=== PATIENT | male | born 1995 | race Caucasian/White ===

== ENCOUNTER 2018-05-09 22:02 | Emergency (ER) | payer SELFPAY ==
[~2018-05-09] VITALS: Ht 177.8 cm; Wt 82.3 kg
[~2018-05-09 22:02] MED LIST: AMOXICILLIN 50500 MG PO; CEPHALEXIN500 M1 PO; DOXYCYCLINE 10100 MG PO; NO HOME MEDICATIONS; NORCO 325 MG-51 TAB PO; ULTRAM 50MG TAB50 MG PO; VOLTAREN 75 DR75 MG PO; ZOVIRAX 200MG200 MG PO
[2018-05-09 22:05] VITALS: TEMP 99.6
[2018-05-09 23:01] LABS: COLLECTION METHOD CLEAN CATCH
[2018-05-09 23:04] LABS: BASO # 0.1 (0.0-0.2); BASO % 0.5 % (0.0-2.0); EOS # 0.1 (0.0-0.7); GRAN # 5.1 (1.4-6.5); GRAN % 54.2 % (42.2-75.2); HEMATOCRIT 44.4 % (42.0-52.0); HEMOGLOBIN 15.2 g/dl (13.5-18.0); LYMPH # 3.1 (1.2-3.4); LYMPH % 32.5 % (20.0-51.0); MEAN CELL VOLUME 85 fl (80.0-100.0); MEAN CORPUSCULAR HEMOGLOBIN 29 pg (27.0-31.0); MEAN CORPUSCULAR HGB CONC 34 g/dl (33.0-37.0); MONO # 1.1 (0.1-0.6); MONO % 11.5 % (1.7-9.3); PLATELET COUNT 316 K/mm3 (130-400); RED BLOOD COUNT 5.22 M/mm3 (4.20-5.60); REDCELL DISTRIBUTION WIDTH-CV 12.4 % (11.5-14.5)
[2018-05-09 23:09] LABS: PH 7 (5-8); SQUAMOUS EPITHELIAL None Seen /hpf; URINE APPEARANCE Clear; URINE BACTERIA None Seen /hpf; URINE BILIRUBIN Negative (NEGATIVE); URINE BLOOD Negative (NEGATIVE); URINE COLOR Straw; URINE GLUCOSE Negative (NEGATIVE); URINE KETONE Negative (NEGATIVE); URINE LEUKOCYTE ESTERASE Negative (NEGATIVE); URINE NITRATE Negative (NEGATIVE); URINE PROTEIN(semi-quant) Negative (NEGATIVE); URINE RBC 0-2 /hpf; URINE UROBILINOGEN Negative (NEGATIVE); URINE WBC 0-2 /hpf
[2018-05-09 23:20] LABS: ALANINE AMINOTRANSFERASE 75 U/L (21-72); ALBUMIN 4.6 gm/dL (3.5-5.0); ALKALINE PHOSPHATASE 83 U/L (50-136); ANION GAP 8 mmol/L (7-16); AST,SGOT 46 U/L (15-37); BILIRUBIN,TOTAL 0.6 mg/dL (0.0-1.0); BLOOD UREA NITROGEN 15 mg/dL (9-20); C-REACTIVE PROTEIN < 0.5 mg/dL (0.0-0.9); CALCIUM 9.6 mg/dL (8.4-10.2); CARBON DIOXIDE 31 mmol/L (22-30); CHLORIDE 102 mmol/L (98-107); CREATININE, serum 1.31 mg/dL (0.66-1.25); GLUCOSE 91 mg/dL (74-106); LIPASE 138 U/L (23-300); POTASSIUM 3.7 mmol/L (3.4-5.0); SODIUM 141 mmol/L (137-145); TOTAL PROTEIN 7.8 gm/dL (6.4-8.2)
[2018-05-10] MEDS ORDERED: ZOFRAN ODT4 MG PO (01:04)
[2018-05-10 01:13] VITALS: BP 129/72; PULSE 81
== END 2018-05-10 01:13 | disposition home or self-care (01) ==
LOC: COL.ER 22:02
PROVIDERS: Physician Assistant
DX: R10.11 Right upper quadrant pain (principal)
CPT/HCPCS: J1885; J2405; J3010; J7030; Q9967

== ENCOUNTER 2020-03-17 12:24 | Emergency (ER) | payer SELFPAY ==
[~2020-03-17] VITALS: Ht 177.8 cm; Wt 90.5 kg
[~2020-03-17 12:24] MED LIST changes: +ZOFRAN ODT4 MG PO
[2020-03-17 12:29] VITALS: TEMP 98.4
[2020-03-17 14:44] LABS: BASO # 0.1 (0.0-0.2); BASO % 0.8 % (0.0-2.0); EOS # 0.2 (0.0-0.7); EOS % 2.2 % (0-4.0); GRAN # 4.6 (1.4-6.5); GRAN % 62.3 % (42.2-75.2); HEMATOCRIT 47.8 % (42.0-52.0); HEMOGLOBIN 15.9 g/dl (13.5-18.0); LYMPH # 1.7 (1.2-3.4); LYMPH % 23.1 % (20.0-51.0); MEAN CELL VOLUME 86 fl (80.0-100.0); MEAN CORPUSCULAR HEMOGLOBIN 29 pg (27.0-31.0); MEAN CORPUSCULAR HGB CONC 33 g/dl (33.0-37.0); MEAN PLATELET VOLUME 8.9 fl (7.4-10.4); MONO # 0.8 (0.1-0.6); MONO % 11.3 % (1.7-9.3); PLATELET COUNT 345 K/mm3 (130-400); RED BLOOD COUNT 5.54 M/mm3 (4.20-5.60); REDCELL DISTRIBUTION WIDTH-CV 12.9 % (11.5-14.5)
[2020-03-17 14:45] LABS: ALANINE AMINOTRANSFERASE 23 U/L (4-49); ALBUMIN 4.6 gm/dL (3.5-5.0); ALKALINE PHOSPHATASE 96 U/L (50-136); ANION GAP 7 mmol/L (7-16); AST,SGOT 26 U/L (15-37); BILIRUBIN,TOTAL 0.6 mg/dL (0.0-1.0); BLOOD UREA NITROGEN 16 mg/dL (9-20); CALCIUM 9.2 mg/dL (8.4-10.2); CARBON DIOXIDE 28 mmol/L (22-30); CHLORIDE 104 mmol/L (98-107); CREATININE, serum 1.17 (0.66-1.25); GLUCOSE 96 mg/dL (74-106); POTASSIUM 4.4 mmol/L (3.4-5.0); SODIUM 139 mmol/L (137-145); TOTAL PROTEIN 7.9 gm/dL (6.4-8.2)
[2020-03-17 14:47] LABS: C-REACTIVE PROTEIN < 0.5 mg/dL (0.0-0.9)
[2020-03-17] MEDS ORDERED: DOXYCYCLINE 10100 MG PO (15:10)
[2020-03-17 15:21] VITALS: BP 150/99; PULSE 66
[2020-03-17 15:24] LABS: COLLECTION METHOD CLEAN CATCH
[2020-03-17 15:29] LABS: PH 5 (5-8); SQUAMOUS EPITHELIAL None Seen /hpf; URINE APPEARANCE Clear; URINE BACTERIA None Seen /hpf; URINE BILIRUBIN Negative (NEGATIVE); URINE BLOOD 1+ (NEGATIVE); URINE COLOR Yellow; URINE GLUCOSE Negative (NEGATIVE); URINE KETONE Negative (NEGATIVE); URINE LEUKOCYTE ESTERASE Negative (NEGATIVE); URINE NITRATE Negative (NEGATIVE); URINE PROTEIN(semi-quant) Negative (NEGATIVE); URINE RBC 0-2 /hpf; URINE UROBILINOGEN Negative (NEGATIVE)
== END 2020-03-17 15:33 | disposition home or self-care (01) ==
LOC: COL.ER 12:24
PROVIDERS: Emergency Medicine
DX: N50.89 Other specified disorders of the male genital organs (principal)
CPT/HCPCS: J0696

== ENCOUNTER 2020-03-22 07:18 | Day surgery (SDC) | payer SELFPAY ==
[~2020-03-22] VITALS: Ht 177.8 cm; Wt 90.9 kg
[2020-03-22 08:32] VITALS: BP 146/75; PULSE 67; TEMP 97.7
[2020-03-22 12:20] VITALS: BP 147/74; PULSE 87; TEMP 98.2
--- NOTE | 2020-03-22 12:20 | NUR ---
Patient brought back to [facility] bay 2 via cart from PACU. Placed on monitors, vital signs stable. Patient denies nausea, reports pain of 4/10 to scrotum. Requesting apple juice at this time. States he would just like to rest. Call coronel within reach, will continue to monitor.
[2020-03-22 12:35] VITALS: BP 133/79; PULSE 90
--- NOTE | 2020-03-22 12:35 | NUR ---
Patient states he needs to use restroom. Ambulated to bathroom without difficulty. now at bedside, updated. Patient requesting margarita crackers. Tolerating juice without difficulty. Will monitor.
[2020-03-22 12:50] VITALS: BP 140/71; PULSE 82
--- NOTE | 2020-03-22 12:50 | NUR ---
Patient tolerating food and drink without difficulty. States he would like pain pill at this time. Vital signs stable on room air.
--- NOTE | 2020-03-22 13:30 | NUR ---
Discharge instructions reviewed with patient and family all questions answered. Follow up appointment made for April 06, family made aware. Mesh underwear and extra fluff provided to patient. IV removed, intact. patient to get dressed at this time.
--- NOTE | 2020-03-22 13:42 | NUR ---
Patient brought down to lobby via wheel chair. Patient to be driven home by father in law. All belongings in hand.
[2020-03-22 19:11] VITALS: BP 137/78; PULSE 85
== END 2020-03-22 13:42 | disposition home or self-care (01) ==
LOC: SDCO 07:18
DX: C62.11 Malignant neoplasm of descended right testis (principal); F17.210 Nicotine dependence, cigarettes, uncomplicated; Z20.828 Contact with and (suspected) exposure to other viral communicable diseases; Z80.0 Family history of malignant neoplasm of digestive organs; Z79.899 Other long term (current) drug therapy
CPT/HCPCS: J0690; J1100; J1885; J2405; J2704; J3010; J7120

== ENCOUNTER → 2020-03-31 | Outpatient (CLI) | payer SELFPAY | LOC: COL.RAD 10:19 | DX: C62.11 Malignant neoplasm of descended right testis (principal); K80.20 Calculus of gallbladder without cholecystitis without obstruction; R59.0 Localized enlarged lymph nodes; R91.1 Solitary pulmonary nodule; Z98.890 Other specified postprocedural states | CPT/HCPCS: Q9967 ==

== ENCOUNTER 2020-06-28 11:02 | Emergency (ER) | payer SELFPAY ==
[~2020-06-28] VITALS: Ht 177.8 cm; Wt 72.7 kg
[2020-06-28 11:10] VITALS: BP 161/83; TEMP 98.4
[2020-06-28 13:40] VITALS: PULSE 87
== END 2020-06-28 13:40 | disposition home or self-care (01) ==
LOC: COL.ER 11:02
DX: M25.562 Pain in left knee (principal)

== ENCOUNTER → 2020-07-14 | Outpatient (CLI) | payer SELFPAY | LOC: COL.RAD 11:30 | DX: C62.90 Malignant neoplasm of unspecified testis, unspecified whether descended or undescended (principal); R91.1 Solitary pulmonary nodule | CPT/HCPCS: Q9967 ==

== ENCOUNTER → 2021-02-17 | Outpatient (CLI) | payer SELFPAY | LOC: COL.RAD 07:33 | DX: C62.90 Malignant neoplasm of unspecified testis, unspecified whether descended or undescended (principal); R91.1 Solitary pulmonary nodule | CPT/HCPCS: Q9967 ==

== ENCOUNTER → 2021-08-21 | Outpatient (CLI) | payer SELFPAY | LOC: COL.RAD 07:58 | DX: C62.90 Malignant neoplasm of unspecified testis, unspecified whether descended or undescended (principal); R91.1 Solitary pulmonary nodule | CPT/HCPCS: Q9967 ==

== ENCOUNTER 2023-08-08 16:33 | Emergency (ER) | payer OTHER ==
[~2023-08-08] VITALS: Ht 177.8 cm; Wt 95.5 kg
[~2023-08-08 16:33] MED LIST changes: +AMOXICILLIN 8751 TAB PO
[2023-08-08 16:57] VITALS: TEMP 98.2
[2023-08-08 19:20] VITALS: BP 128/81; PULSE 80
== END 2023-08-08 19:20 | disposition home or self-care (01) ==
LOC: COL.ER 16:33
DX: S62.304A Unspecified fracture of fourth metacarpal bone, right hand, initial encounter for closed fracture (principal); W23.1XXA Caught, crushed, jammed, or pinched between stationary objects, initial encounter